=== PATIENT | male | born 1985 | race Caucasian/White ===

== ENCOUNTER 2018-08-31 04:31 | Emergency (ER) | payer OTHER ==
[~2018-08-31] VITALS: Ht 170.2 cm; Wt 70.5 kg
[2018-08-31 04:37] VITALS: TEMP 97.8
[2018-08-31] MEDS ORDERED: ZITHROMAX Z PA250 MG PO (04:55)
[2018-08-31] MEDS ORDERED: TESSALON P100 MG/CAP PO (05:29)
[2018-08-31] MEDS ORDERED: OMNICEF 300MG300 MG PO (06:18)
[2018-08-31] MEDS ORDERED: ANTIVERT 25MG25 MG PO ×3 (06:18)
[2018-08-31] MEDS ORDERED: PHENERGAN 25 TA25 MG PO (06:41)
[2018-08-31 06:52] VITALS: BP 149/85; PULSE 58
[2018-09-01] MEDS ORDERED: VALIUM 5MG T5 MG/TAB PO (10:11)
== END 2018-08-31 08:09 | disposition home or self-care (01) ==
LOC: COL.ER 04:31
DX: H66.92 Otitis media, unspecified, left ear (principal); R11.10 Vomiting, unspecified; R42 Dizziness and giddiness
CPT/HCPCS: A4216; J0696; J1170; J1885; J2060; J2405; J2550; J7030

== ENCOUNTER 2021-07-11 08:06 | Day surgery (SDC) | payer BC ==
[2021-07-11] VITALS (8 sets, daily range): BP systolic 123–137; BP diastolic 78–88; PULSE 54–70; TEMP 97.8
[~2021-07-11] VITALS: Ht 170.2 cm; Wt 77.0 kg
[~2021-07-11 08:06] MED LIST: ANTIVERT 25MG25 MG PO; OMNICEF 300MG300 MG PO; PHENERGAN 25 TA25 MG PO; TESSALON P100 MG/CAP PO; VALIUM 5MG T5 MG/TAB PO; ZITHROMAX Z PA250 MG PO
[2021-07-11 08:44] LABS: HEMATOCRIT 42.4 % (42.0-52.0); HEMOGLOBIN 14.7 g/dl (13.5-18.0); MEAN CELL VOLUME 87 fl (80.0-100.0); MEAN CORPUSCULAR HEMOGLOBIN 30 pg (27-31); MEAN CORPUSCULAR HGB CONC 35 g/dl (33.0-37.0); MEAN PLATELET VOLUME 9.4 fl (7.4-10.4); PLATELET COUNT 197 K/mm3 (130-400); RED BLOOD COUNT 4.88 M/mm3 (4.20-5.60); REDCELL DISTRIBUTION WIDTH-CV 11.9 % (11.5-14.5)
[2021-07-11] MEDS ORDERED: ASPIRIN E.C. 8181 MG PO (08:47)
[2021-07-11] MEDS ORDERED: COREG 3.123.125 MG/T PO (08:47)
[2021-07-11] MEDS ORDERED: ZESTRIL 5MG5 MG PO (08:48)
[2021-07-11] MEDS ORDERED: OMEGA-3 1000 MG1 CAP PO (08:49)
[2021-07-11] MEDS ORDERED: MEN'S ONE DAIL1 EACH PO (08:50)
[2021-07-11 08:52] LABS: INR 1.1 (0.8-3.0); PROTHROMBIN TIME 11.8 SECONDS (9.7-12.8)
[2021-07-11 08:54] LABS: PARTIAL THROMBOPLASTIN TIME 30.2 SECONDS (26.0-37.0)
[2021-07-11 09:00] LABS: CREATININE, serum 1.15 mg/dL (0.72-1.25); POTASSIUM 4.4 mmol/L (3.5-4.5)
--- NOTE | 2021-07-11 10:35 | NUR ---
Pt is back to [facility] after [facility]. Pt is awake and alert, pwd, SR/SB on monitor, telemetry initiated. TR band to rt wrist, cms intact distal. Pt and updated on POC. We discussed discharge instructions verbally at this time, and will review them throughout pt's stay.
--- NOTE | 2021-07-11 13:30 | NUR ---
Pt has done well during his recovery. TR band has been deflated with no problem. site dressed with bandaid, folded 2x2 and coban. cms remains intact distal. no evidence of bleeding noted, site soft, no hematoma. I reviewed written dc and fu instructions with patient. He verbalized understanding. Pt filled out a medical records release form to [facility] records to [facility]. I delivered this form and copy of his IDs to medical records office. Pt is up and ambulatory with steady gait in room. IV is dc'd with cath intact, dressing applied. pt is escorted to exit via wheelchair.
== END 2021-07-11 13:30 | disposition home or self-care (01) ==
LOC: COL.CAR 08:06
PROVIDERS: Internal Medicine Cardiovascular Disease
DX: I42.8 Other cardiomyopathies (principal)
CPT/HCPCS: J1644; J2250; J3010; Q9967